=== PATIENT | male | born 1985 | race Hispanic/Latino ===

== ENCOUNTER 2020-06-23 23:23 | Emergency (ER) | payer OTHER ==
[2020-06-23] MEDS ORDERED: KETOROLAC TROMETHAMINE 30MG/ML ONE (23:51)
== END 2020-06-23 23:59 | disposition home or self-care (01) ==
LOC: EDH 23:23
DX: M94.0 Chondrocostal junction syndrome [Tietze] (principal); Z72.0 Tobacco use
CPT/HCPCS: 71045; 93005; 96372; 99283; J1885